=== PATIENT | male | born 1950 | race Caucasian/White ===

== ENCOUNTER → 2017-03-14 | Outpatient (CLI) | payer BC | LOC: FIMAGING 09:36 | PROVIDERS: ATTEND Specialist | DX: I87.8 Other specified disorders of veins (principal); Z87.442 Personal history of urinary calculi ==

== ENCOUNTER 2017-07-10 15:23 | Inpatient (IN) | payer BC ==
--- NOTE | 2017-07-10 15:40 | EDPHY ---
General - History Smoking Status: Never smoked Time Seen by Provider: 07/10/17 15:35 Narrative: CHIEF COMPLAINT: Elevated heart rate, dizzy HISTORY OF PRESENT ILLNESS: Patient sent to the emergency department as primary care physician due to elevated heart rate and abnormal EKG. He was at his primary care office today for routine visit. However, he complains that yesterday morning when he awoke he felt some shortness of breath and lightheadedness. His heart felt fossa but was not painful. Seem to be worse when he with ambulate. Minimal improvement rest. He did not wear his sleep apnea machine Saturday night. He has never had anything like this in the past. At his primary care office today, EKG was obtained due to elevated heart rate at check and vitals. EKG reportedly showed SVT. He was sent to our facility for higher level of care. He has had no syncope. He has no drug use or alcohol use. No other associated complaints or modifying factors. REVIEW OF SYSTEMS: Ten systems reviewed and are negative unless otherwise noted in the HPI PCP: Dr. Yasir Cheung SPECIALISTS: None currently PAST MEDICAL HISTORY: Low back pain, hypertension, dyslipidemia, central sleep apnea, opioid dependency currently weaning under supervision of physician PAST SURGICAL HISTORY: Lumbar surgery 2017 SOCIAL HISTORY: Nonsmoker. No drug or alcohol use. Retired post chief operations officer FAMILY HISTORY: Noncontributory EXAMINATION General Appearance: Alert, no distress. Conversing appropriately. Head: normocephalic, atraumatic Eyes: Pupils equal and round, no conjunctival pallor or injection ENT, Mouth: Mucous membranes moist Neck: Normal inspection, supple, non-tender Respiratory: Lungs are clear to auscultation. No wheezing, rhonchi or crackles Cardiovascular: Tachycardic rate. Irregular rhythm. No murmur. Pulses are symmetric in the DP and PT at 2+. Radial pulses symmetric 2+. Gastrointestinal: Abdomen is soft and nontender Back: non-tender, no bony abnormalities Neurological: GCS 15. Cranial nerves 2-12 grossly intact. A&O, nonfocal, normal gait. Strength is symmetric in all 4 limbs. Skin: Warm and dry, no rash no petechiae or purpura Extremities: Nontender, no pedal edema Psychiatric: Mood and affect normal DIFFERENTIAL DIAGNOSES: Including but not limited to SVT, atrial fibrillation, a flutter, atrial tachycardia, dysrhythmia MDM: 3:39 p.m. New onset of SVT versus AFib versus flutter. EKG pre-hospital suggest a flutter. He is awake and alert no acute distress. He is normotensive. He does have some shortness of breath and lightheadedness but no chest pain. EKG is being obtained at this time. IV has been placed. Laboratory studies have been ordered. I will discuss with Dr. Vieira for assistance in the management. 3:50 p.m. Patient has been evaluated by Dr. Vieira 4:10 p.m. Repeat EKG with different intervals suggest atrial flutter. We will start with a bolus of IV diltiazem in IV diltiazem drip. 4:15 p.m. I have re-evaluated the patient. He remains awake and alert and normotensive. We discussed treatment with diltiazem and diltiazem drip. Cardiology is been consult. Dr. Vieira has discussed the case with Dr. Guerrero. 4:30 p.m. Troponin is slightly elevated at 0.15. 4:45 p.m. Case discussed with hospitalist Dr. Ledezma. She will admit the patient to her service. He is admitted to a PCU bed with diltiazem drip. He is admitted in stable condition. Operations Agent will be evaluated the patient shortly in the emergency department SUPERVISION: Patient was evaluated and examined in conjunction with my secondary supervising physician as documented. We have both examined the patient. (Masood Smalls) 161: Evaluated this patient. He has central apnea and uses a BIPAP nightly. Monday night, 3 days ago, he had a fever of 101.3 degrees and chills. He is currently tapering off of his opiates from 750mg and is currently taking 60mg. He forgot to use his BIPAP machine 2 nights ago. Yesterday he had shortness of breath all day. Today he was having his yearly physical with Dr. Cheung who noticed the patient was tachycardic and had dyspnea. I have consulted with Dr. Guerrero, lamp decorator, regarding this patient. Diltazem 20mg IV bolus and drip administered. 1651: Consulted with Dr. Mckeon, hospitalist, he will assume care of this patient from Dr. Ledezma. (Oscar Vieira) - Diagnostics Imaging Results: Imaging Impressions Chest X-Ray 07/10/17 15:40 Impression: Nothing acute identified. No evidence for CHF. - Objective Vital Signs: Initial Vital Signs Temperature (C) 36.7 C 07/10/17 15:27 Heart Rate 147 H 07/10/17 15:27 Respiratory Rate 18 07/10/17 15:27 Blood Pressure 151/103 H 07/10/17 15:27 O2 Sat (%) 95 07/10/17 15:27 O2 Delivery Mode Room Air Allergies/Adverse Reactions: erythromycin base Allergy (Severe, Verified 06/11/14 11:18) Unknown Home Medications: Medication Instructions Recorded Amitriptyline HCl [Elavil 50 mg 25 mg PO HS 06/11/14 (RX)] Carisoprodol [Soma (RX)] 350 mg PO HS 06/11/14 Diazepam [Valium 5 MG (RX)] 5 mg PO HS PRN 06/11/14 Gabapentin [Gralise] 1,800 mg PO DAILY@1800 06/11/14 HYDROcodone/APAP 10/325 [Drifting 1 - 2 tab PO DAILY PRN 06/11/14 10/325] Herbals/Supplements -Info Only 1 ea PO DAILY 06/11/14 Morphine Sulfate [Avinza] 60 mg PO BID 06/11/14 Naproxen Sodium [Aleve] 220 - 440 mg PO DAILY PRN 06/11/14 Pravastatin Sodium [Pravachol] 40 mg PO HS 06/11/14 Sodium Cl Nasal [[place] (OTC)] 1 spray NS PRN PRN 06/11/14 clonAZEPAM [Klonopin] 0.5 mg PO HS PRN 06/11/14 Laboratory Results: Laboratory Results 07/10/17 15:45 07/10/17 15:45 07/10/17 07/10/17 07/10/17 15:45 15:45 15:45 WBC 5.65 10^3/uL 10^3/uL (3.80-9.50) RBC 4.67 10^6/uL 10^6/uL (4.40-6.38) Hgb 14.2 g/dL g/dL (13.7-17.5) Hct 42.6 % % (40.0-51.0) MCV 91.2 fL fL (81.5-99.8) MCH 30.4 pg pg (27.9-34.1) MCHC 33.3 g/dL g/dL (32.4-36.7) RDW 12.9 % % (11.5-15.2) Plt Count 265 10^3/uL 10^3/uL (150-400) MPV 9.8 fL fL (8.7-11.7) Neut % (Auto) 56.4 % % (39.3-74.2) Lymph % (Auto) 31.7 % % (15.0-45.0) [place] % (Auto) 10.6 % % (4.5-13.0) Eos % (Auto) 0.7 % % (0.6-7.6) Baso % (Auto) 0.4 % % (0.3-1.7) Nucleat RBC Rel Count 0.0 % % (0.0-0.2) Absolute Neuts (auto) 3.19 10^3/uL 10^3/uL (1.70-6.50) Absolute Lymphs (auto) 1.79 10^3/uL 10^3/uL (1.00-3.00) Absolute Monos (auto) 0.60 10^3/uL 10^3/uL (0.30-0.80) Absolute Eos (auto) 0.04 10^3/uL 10^3/uL (0.03-0.40) Absolute Basos (auto) 0.02 10^3/uL 10^3/uL (0.02-0.10) Absolute Nucleated RBC 0.00 10^3/uL 10^3/uL (0-0.01) Immature Gran % 0.2 % % (0.0-1.1) Immature Gran # 0.01 10^3/uL 10^3/uL (0.00-0.10) PT 13.5 SEC SEC (12.0-15.0) INR 1.01 (0.83-1.16) APTT 32.5 SEC SEC (23.0-38.0) Sodium 144 mEq/L mEq/L (135-145) Potassium 3.7 mEq/L mEq/L (3.5-5.2) Chloride 103 mEq/L mEq/L (97-110) Carbon Dioxide 28 mEq/l mEq/l (22-31) Anion Gap 13 mEq/L mEq/L (8-16) BUN 19 mg/dL mg/dL (7-23) Creatinine 1.0 mg/dL mg/dL (0.7-1.3) Estimated GFR > 60 Glucose 88 mg/dL mg/dL (70-100) Calcium 9.2 mg/dL mg/dL (8.5-10.4) Magnesium 1.9 mg/dL mg/dL (1.6-2.3) Troponin I 0.154 ng/mL H ng/mL (0.000-0.034) NT-Pro-B Natriuret Pep 4260 pg/mL H pg/mL (0-125) Medications Given: Discontinued Medications Diltiazem HCl (Cardizem 25 Mg/5 Ml Vial) 20 mg IVP EDNOW ONE Stop: 07/10/17 16:16 Last Admin: 07/10/17 16:41 Dose: 20 mg Diltiazem HCl 125 mg/ Dextrose 125 mls @ 0 mls/hr IV EDNOW ONE; As Directed PRN Reason: Protocol Stop: 07/10/17 16:16 Last Admin: 07/10/17 16:42 Dose: 125 mls Departure - Departure Disposition: [facility] Inpatient Acute Clinical Impression: Supraventricular tachycardia Condition: Good Referrals: Yasir Cheung MD [Primary Care Provider] - As per Instructions
--- NOTE | 2017-07-10 15:53 | CPEKG ---
Heart Rate: 146 RR Interval: 411 P-R Interval: 172 QRSD Interval: 96 QT Interval: 320 QTC Interval: 499 P [place]: -83 QRS [place]: -66 T Wave [place]: 56 EKG Severity - ABNORMAL ECG - EKG Impression: ECTOPIC ATRIAL TACHYCARDIA EKG Impression: PROBABLE INFERIOR INFARCT, OLD EKG Impression: ST DEPRESSION, PROBABLY RATE RELATED EKG Impression: BORDERLINE PROLONGED QT INTERVAL Electronically Signed By: Nicole Ceja 10-Jul-2017 17:19:24
[2017-07-10 16:02] LABS: PLATELET COUNT 265 10^3/uL (150-400)
[2017-07-10] MEDS ORDERED: DILTIAZEM 125 MG in D5W 125 ML IV ONE (16:15)
[2017-07-10] MEDS ORDERED: DILTIAZEM 25 MG/5 ML VIAL IVP ONE (16:15)
[2017-07-10 16:18] LABS: INR 1.01 (0.83-1.16); PROTIME(PATIENT) 13.5 SEC (12.0-15.0)
[2017-07-10] MEDS ORDERED: ACETAMINOPHEN 325 MG TAB PO PRN (17:37)
[2017-07-10] MEDS ORDERED: ONDANSETRON DISINTEGRATING 4 MG TAB PO PRN (17:37)
[2017-07-10] MEDS ORDERED: ONDANSETRON 4 MG/2 ML VIAL IVP PRN (17:37)
[2017-07-10] MEDS ORDERED: METOPROLOL TARTRATE 50 MG TAB PO ONE (17:41)
--- NOTE | 2017-07-10 17:48 | PDGENHP ---
History and Physical History and Physical: CC: The lightheadedness and exertional dyspnea, sent from Dr. Cheung office due to rapid heart rate HISTORY: This patient went into Dr. Yasir Cheung office for his routine previously scheduled general checkup today when it was noted that he had a very fast heart rate. This was regular but he had abnormal EKG with a flutter and he is sent to the ER for further evaluation and management. The patient mentions that he has had orthostatic lightheadedness and some exertional dyspnea that is somewhat mild for the last 2 days. This seems to have started he thinks after he decreased his narcotic dose 3 nights ago as part of his long ongoing tapering of prescribed narcotics. He had some mild withdrawal symptoms that night and did not sleep well. Also notably he did not use his sleep apnea at the breathing device that night. He has no palpitations chest pain orthopnea ankle swelling ankle or leg pain fevers thyroid symptoms. He has no previous history of heart disease or heart symptoms on review. Family history does include coronary disease in brother and father, and his father also had atrial fibrillation which was chronic. He does not drink any alcohol, was a heavy drinker quit 12 years ago. He does have central sleep apnea. He does not use any stimulants. He does not use any street drugs. He is not a smoker and never has been Also notable is that he had some tests prior to his visit with Dr. Cheung today, and the results on my review did include a low ferritin level. He mentions having had borderline low iron levels in the past. At 1 point in the remote past he was taking multivitamins with iron and had a higher iron level that was managed by stopping the iron supplement and he has been slightly low since then. He has never had a diagnostic assessment for why he is iron deficient. He has not been anemic. He has no weight loss digestive symptoms melanic stools or blood in the stool by history. No family history of GI malignancy ROS: A comprehensive 10 system review revealed no other significant findings PAST MEDICAL HISTORY: -Central sleep apnea using a CPAP like device -Chronic borderline iron deficiency -Chronic back pain for which she has used very high doses of prescribed narcotics, he had a surgery in July 2016 which has relieved his back pain and he has been slowly tapering down his narcotics since then. He has started off at 750 mg per day of combination of Oxy and hydrocodone and is down to 60 mg per day now. -There is a question of obstructive airways disease in the past and he apparently had some kind of pulmonary function testing at 1 point, and it is unclear whether there was actually an abnormality noted or not. He has never had asthma and has never used inhalers. -Bundle branch block FAMILY MEDICAL HISTORY: Coronary disease and myocardial infarctions in father and brother, AFib in father SOCIAL HISTORY: -Retired after working for the [employer] -Formally a heavy drinker quit 12 years ago -Never used any tobacco -Does not use street drugs -Lives in [place] MEDICATIONS: The patients list has been reconciled by our clinical pharmacist in the EMR. I have reviewed the list and ordered appropriate medicines. PHYSICAL EXAMINATION: Vital Signs: Heart rate 140-150 currently stable at 148 and regular, good blood pressure respirations and no fever Coffee Urn Attendant: Rapid atrial flutter 2-1 Examination: General: alert, oriented, good mentation, relaxed Skin: warm, dry, good color, no rash HEENT: normal Neck: no mass or jvd, no goiter Resps: relaxed Lungs: clear breath sounds with good air movement, no rales Heart: Very tachycardic, regular, no murmur Abdomen: soft, nondistended, nontender, +BS, no mass Upper Extremities: normal no clubbing of the fingers Lower Extremities: no edema, warm good pulses distally No Bleeding or bruising Neurologic: No tremor, normal speech/language, normal oil analyst, no focal weakness IV site: looks normal LABORATORY DATA: Date here today so far include a normal CBC, normal metabolic panel, normal coagulation studies Troponin mildly elevated 0.15, BNP is also elevated at 4000 Reviewing outpatient laboratory that was done recently I notice that he has a low ferritin at 12, with an iron level at 50 but no TIBC done. His most recent study before that showed a normal ferritin. RADIOLOGY STUDIES: Chest x-rays done today showing on my reading of the images no specific abnormalities including no signs of heart failure no masses no effusions or infiltrates 12 LEAD EKG: My reading of the tracing today is rapid atrial flutter 2-1 block heart rate 148 , nothing that looks ischemic ASSESSMENT: 1- new onset rapid atrial flutter in a patient with no prior history of heart disease * 2-1 block heart rate 148, poor response so far to diltiazem in the ER * No signs of heart failure or angina or other complications * Minimally elevated troponin is probably a demand ischemia from his tachycardia for the last 2 days * Suspect onset 2 days ago and triggered by some decrease in his narcotic dose * Not on aspirin or anticoagulants * Notably coronary risks does include family history 2- strongly suspect iron deficiency anemia, likely chronic with no history of previous GI workup * Will give iron here and will need outpatient GI workup; * follow closely here as he will be started on anticoagulant * Will check Hemoccult here 3- chronic sleep apnea, central * Does not have his CPAP device with them and does not think it can be brought in tonight so ask Respiratory therapy to assist and keep him on CPAP here 4- chronic back pain with chronic prescribed high-dose daily narcotic use * Has done a great job of tapering down from 750 mg daily to 60 mg daily of oral prescribed narcotic, continue his usual dose here PLANS: -inpatient admission to PCU -Dr. Rebekah Guerrero from Cardiology was consulted by the emergency room physician -rate control, I will start with some beta-omar at this time as he has not responded well yet to the diltiazem in the ER -no acute indication for cardioversion, and in fact with not entirely certain time of onset would not be safe cardiovert at least without doing ERVIN 1st -begin anticoagulation tonight with Lovenox, will need to discharge on oral -echocardiogram -check TSH -doubt coronary disease but will repeat troponins to see they are not trending up, and will likely need risk stratification before discharge or shortly after -check complete iron studies to confirm diagnosis of spit suspected iron deficiency; * Check stool hemoccults, give IV iron here and oral iron going home * Need outpatient GI workup -continue CPAP here if able, have requested that he look to trying get someone to bring his CPAP device here tomorrow I have reviewed the patient's case in detail with Dr. Alba Ledezma and Dr. Oscar Vieira I have reviewed the patient's past medical records as part of this assessment, including outpatient laboratory data, CT scans, and other outpatient records
[2017-07-10] MEDS ORDERED: NON-FORMULARY NEW DRUG (Clonazepam [Klonopin] 0.5 MG) PO PRN (17:57)
[2017-07-10] MEDS ORDERED: SODIUM CL NASAL 45 ML BTL NS PRN (17:57)
[2017-07-10] MEDS ORDERED: DIAZEPAM 5 MG TAB PO PRN (17:57)
[2017-07-10] MEDS ORDERED: SODIUM FERRIC GLUCONAT/SUCROSE 125 MG in NS 100 ML IV ONE (18:00)
[2017-07-10] MEDS ORDERED: DIAZEPAM 10 MG TAB PO PRN (18:43)
[2017-07-10] MEDS ORDERED: clonazePAM 0.5 MG TAB PO PRN (18:44)
[2017-07-10] MEDS ORDERED: DILTIAZEM 125 MG in D5W 125 ML IV SCH (20:00)
[2017-07-10] MEDS ORDERED: AMITRIPTYLINE HCL 50 MG TAB PO SCH (21:00)
[2017-07-10] MEDS: HYDROCODONE/APAP 10/325 TAB PO PRN (21:33)
[2017-07-10] MEDS: PRAVASTATIN SODIUM 40 MG TAB PO SCH (21:34)
[2017-07-10] MEDS: AMITRIPTYLINE HCL 25 MG TAB PO SCH (21:37)
[2017-07-10] MEDS: CARISOPRODOL 350 MG TAB PO SCH (21:37)
[2017-07-10] MEDS ORDERED: CEPACOL LOZENGE PO PRN (23:14)
[2017-07-10] MEDS ORDERED: ENOXAPARIN 80 MG/0.8 ML SYR SC ONE (23:14)
[2017-07-11] MEDS: HYDROCODONE/APAP 10/325 TAB PO PRN ×5 (01:16→21:25)
[2017-07-11 04:47] LABS: PLATELET COUNT 226 10^3/uL (150-400)
--- NOTE | 2017-07-11 08:41 | CPEKG ---
Heart Rate: 68 RR Interval: 882 P-R Interval: 176 QRSD Interval: 114 QT Interval: 448 QTC Interval: 477 P Fosters: 52 QRS [place]ost[place]: -21 T Wave [place]: 35 EKG Severity - ABNORMAL ECG - EKG Impression: SINUS RHYTHM EKG Impression: NONSPECIFIC INTRAVENTRICULAR CONDUCTION DELAY EKG Impression: LOW VOLTAGE IN FRONTAL LEADS Electronically Signed By: Keven Woodall 11-Jul-2017 19:14:43
--- NOTE | 2017-07-11 08:58 | ECHO ---
[email or web address] [address] [address] Main: [phone] Fax: Transthoracic Echocardiogram Name: HIMA NOYOLA MR#: [id number] Study Date: 07/11/2017 Study Time: 07:59 AM Date of : 1950 Age: 66 year(s) Height: 177.8 cm (70 in.) Weight: 79.38 kg (175 lb.) BSA: 1.97 m2 Gender: Male Examination: Echo Indication: New onset Atrial Flutter, Now Sinus rhythm with ectopy and Chest Pain Image Quality: Contrast: Requested by: Juan Mckeon BP: 97 mmHg/74 mmHg Heart Rate: Rhythm: Normal sinus rhythm with ectopy Indication: New onset Atrial Flutter, Now Sinus rhythm with ectopy and Chest Pain Procedure Staff Merchandise Pickup/Receiving Associate: [facility] Reading Physician: Rebekah Guerrero Requesting Provider: Alba Ledezma Conclusions: Normal size left ventricle. Normal global systolic LV function. EF is 73 %. No regional wall motion abnormality. Grade 1 diastolic dysfunction (abnormal relaxation). Normal size right ventricle. Normal RV function. Moderate aortic valve regurgitation is present. The aortic valve is probably trileafet; a bicuspid aortic valve cannot be completely ruled out. Mild tricuspid regurgitation is present. The pulmonary artery pressure is moderately increased. No prior echo Measurements: Chambers Valvular Assessment AV/MV Valvular Assessment TV/PV Normal Normal Normal Name Value Range Name Value Range Name Value Range Ao Kinsey (MM): 4.3 cm (2.2 cm-3.7 AV meanP mmHg ( - ) TR Vmax: 3.39 mm/s ( - ) cm) KUMAR (VTI): 2.0 cm ( - ) TR PGmax: 46 mmHg ( - ) IVSd (2D): 1.0 cm (0.6 cm-1.1 MV E Vmax: 0.46 m/s ( - ) syst. PAP: 51 mmHg ( - ) cm) MV A Vmax: 0.59 m/s ( - ) PV Vmax: 0.62 m/s (0.6 m/s-0.9 LVDd (2D): 5.3 cm (4.2 cm-5.9 MV E/A: 0.78 ( - ) m/s) cm) MV meanP mmHg ( - ) PV PGmax: 2 mmHg ( - ) LVDs (2D): 3.1 cm (2.1 cm-4 cm) MVA (Vmax): 2.6 m/s ( - ) LVPWd (2D): 1.2 cm (0.6 cm-1 cm) LVOTd 2.1 cm 2.1 cm mm LVEF (2D): 73 (>=54 %) Patient: HIMA NOYOLA Study Date: 07/11/2017 Page 1 of 2 07:59 AM Continued Measurements: Chambers Valvular Assessment AV/MV Valvular Assessment TV/PV Name Value Name Value Name Value LADs Lon.1 cm MV Annulus: 3.1 cm CVP (est.): 5 mmHg LA Area: 17.0 cm2 MV E' Septal: 0.06 m/s LA Volume: 44 ml MV E/E' Septal: 7.20 LA Volume Index: 22.3 ml/m2 MV E/E' Lateral: 6.00 MV VTI: 20.20 cm AR Vmax: 3.56 cm/s AR ERO: 0.140 cm2 AR PISA radius: 0.5 cm AR Reg. Volume: 25.0 ml AR Reg. Fraction: 47 % AR VTI: 178.0 cm Findings: Left Ventricle: Normal size left ventricle. Normal global systolic LV function. EF is 73 %. No regional wall motion abnormality. Grade 1 diastolic dysfunction (abnormal relaxation). Right Ventricle: Normal size right ventricle. Normal RV function. Left Atrium: The left atrium is normal in size. Right Atrium: The right atrium is normal in size. Mitral Valve: The mitral valve is normal in appearance and function. There is no mitral valve regurgitation. No mitral stenosis is present. Aortic Valve: Moderate aortic valve regurgitation is present. No aortic valve stenosis is present. The aortic valve is probably trileafet; a bicuspid aortic valve cannot be completely ruled out. Tricuspid Valve: Mild tricuspid regurgitation is present. The pulmonary artery pressure is moderately increased. Pulmonic Valve: The pulmonic valve is normal in appearance and function. Aorta: The aorta is normal. Pericardium: No pericardial effusion. (No Signature Object) Patient: HIMA NOYOLA Study Date: 07/11/2017 Page 2 of 2 07:59 AM [id number]
[2017-07-11] MEDS: POLYETHYLENE GLYCOL 3350 17 GM PKT PO SCH (09:31)
--- NOTE | 2017-07-11 10:28 | PDMN ---
Medical Necessity Medical necessity: M-510 Supraventricular Arrhythmias (likely demand ischemia/ elevated troponins with 2:1 atrial flutter, rate 148; anticipated LOS > 2 midnights for ongoing diltiazem IV gtt, starting PO betablocker, anticoagulation , further monitoring.)
[2017-07-11] MEDS ORDERED: SODIUM FERRIC GLUCONAT/SUCROSE 125 MG in NS 100 ML IV ONE (10:51)
[2017-07-11] MEDS: APIXABAN 5 MG TAB PO SCH ×2 (10:56→21:18)
[2017-07-11] MEDS: METOPROLOL TARTRATE 25 MG TAB PO SCH ×2 (10:56→21:16)
[2017-07-11] MEDS: PANTOPRAZOLE SODIUM 40 MG TAB PO SCH (10:57)
--- NOTE | 2017-07-11 12:20 | GCON ---
[f rep st] CONSULTATION CARDIOLOGY CONSULT DATE OF CONSULTATION: 07/11/2017 REFERRING PHYSICIAN: Juan Mckeon MD CHIEF COMPLAINT: Atrial flutter. HISTORY OF PRESENT ILLNESS: We were asked by Dr. Mckeon to visit with this patient. The patient is a 66-year-old male with borderline hypertension, dyslipidemia, central sleep apnea, and chronic anemi a. He had a rough weekend. On Monday night, he went through a round of opioid withdrawal, which has bee n happening periodically as he weans his chronic opiates under the direction of his pain medicine doc leyla. On Monday night, he put his ASV machine on but did not turn it on and slept very poorly. All day Monday, he was short of breath and lightheaded. He had a little bit of chest pressure. He went to Dr. Cheung' office yesterday, July 10, for his annual physical exam and was found to be in a rapid SVT, which appears most likely to be atrial flutter. He was, therefore, sent to the emerg ency department and admitted for observation. He initially was started on diltiazem drip and then given 50 mg of metoprolol tartrate p.o. He conve rted to normal sinus rhythm yesterday evening. He has been given full-dose Lovenox as well. This morning, he reports some persistent chest pressure that is overall improving, especially when he sits up. He is no longer lightheaded. He is not dyspneic. He has not had problems with lower extr emity edema. He denies a known history of arrhythmia or coronary disease. ALLERGIES: Erythromycin. PAST MEDICAL HISTORY: 1. New diagnosis of atrial flutter. 2. Chronic iron deficiency anemia. 3. Borderline hypertension. 4. Dyslipidemia. 5. Central sleep apnea treated with ASV. 6. History of chronic low back pain, currently weaning narcotics. SURGICAL HISTORY: Spine surgery x2. OUTPATIENT MEDICATIONS: Pravastatin 40 mg daily, Elavil, Soma, Klonopin, Valium, Beatrice, Aleve, Taylor AX, and [place] nasal spray. SOCIAL HISTORY: The patient is a retired spray worker. He is not smoke cigarettes or drink signifi cant amounts of alcohol. Former heavy alcohol use, none for several years. FAMILY HISTORY: Father had atrial fibrillation. His father and brother had coronary disease with my ocardial infarction. PHYSICAL EXAMINATION: VITAL SIGNS: Blood pressure 97/74, heart rate 71, oxygen saturation 96% on ro om air. He is afebrile. GENERAL: Well-appearing, older male in no acute distress. HEENT: Sclerae clear. No jaundice. Mucous membranes moist. CARDIOVASCULAR: JVP less than 10. Carotids equal an d 2+ without bruit. Regular rate and rhythm without murmur or gallop. LUNGS: Clear to auscultation bilaterally without wheeze, rhonchi, or rales. ABDOMEN: Soft, nontender, nondistended without brui ts, masses, hepatosplenomegaly. EXTREMITIES: Warm and well perfused without cyanosis, clubbing, or edema. NEUROLOGIC: Alert and oriented x3 without gross focal neurological deficits. Appropriate mo od and affect. DATA: CBC shows a white count of 5.1, hematocrit 34.8, and platelets are 226. INR is normal. Basic metabolic panel is essentially normal except for slightly low calcium of 8.4. Troponin peaked at 0. 154. His BNP is 4260. TSH is low normal at 0.887. Iron 46, iron saturation 14, TIBC is normal. St ool occult blood screen is negative. LABORATORY AND DIAGNOSTIC STUDIES: EKG reviewed by me upon admission shows atrial flutter with 2:1 c onduction and no ischemic changes. EKG this morning: Sinus rhythm, borderline prolonged QT interval . No ischemic changes. Echocardiogram reviewed by me: Normal LV size and systolic function, moderate aortic regurgitation, cannot completely rule out a bicuspid aortic valve, mild tricuspid regurgitation with estimated pulmo nary artery pressure of 50, moderate pulmonary hypertension. Chest x-ray reviewed by me: No acute cardiopulmonary process. ASSESSMENT AND PLAN: 66-year-old male with new onset atrial flutter. He has converted with diltiaze m IV and oral metoprolol. He is currently in sinus rhythm. He did have a minimal troponin elevation as well as evidence of some diastolic heart failure based on BNP. He is not clinically volume overl oaded. 1. Atrial flutter: Initiate low-dose beta omar. Initiate Eliquis for CHADS2-VASc score of at le ast 1. I would recommend Eliquis for a minimum of 1 month, with careful attention to his hematocrit with history of ill-defined anemia. He reports that he has never had a bleeding problem. TSH is nor mal. It is likely that his atrial arrhythmia was triggered by a night without his Adaptive Servo Seun tilation as well as opiate withdrawal. If he has recurrent atrial flutter, consider electrophysiolog y consult. 2. Minimally elevated troponin: This is likely demand subendocardial ischemia in the setting of rap id ventricular rate. He is having some intermittent chest pressure earlier today. Would favor inpat ient risk stratification with Lexiscan nuclear stress test. This has been ordered. Continue beta-bl ocker. Continue statin. 3. Valvular heart disease: He has moderate aortic regurgitation on echocardiogram. He will require annual echoes to follow this. At some point, could consider transesophageal echocardiogram to ensur e that the valve is not bicuspid. 4. Dyslipidemia: On pravastatin. 5. Chronic pain and chronic opioid dependence: Per outpatient management. 6. Anemia: It is likely that he has previously had an outpatient workup with Dr. Cheung. We marlo l start him on a proton pump inhibitor here. Careful attention to his bleeding risk in the setting o f initiation of systemic anticoagulation. Thank you for allowing us to participate in this patient's care. Will follow with you. /[id number]/MODL
--- NOTE | 2017-07-11 13:34 | ASMTCMCOM ---
CM Note CM Note Notes: 07/11/2017 Case Management Note Met w/pt during rounds today. Pt admitted for new onset atrial flutter with h/o SOB and dizziness. There are no PT or OT evals ordered at this time. Pt has family support. There are no further case management d/c needs identified at this time. Case Management d/c poc: anticipating independent with follow up as directed. Case Management available if needs change. Date Signed: 07/11/2017 01:34 PM Electronically Signed By:Sabrina Murillo RN
--- NOTE | 2017-07-11 17:46 | HOSPPROG ---
Hospitalist Progress Note Assessment/Plan: Assessment: 66-year-old male presenting with acute atrial flutter, new diagnosis, acute chest pain and abnormal troponin level Plan: 1. Atrial flutter. Acute, new diagnosis, unclear whether myocardial ischemia has been the cause or effect of this issue -initial EKG personally interpreted, atrial flutter, then received oral metoprolol and IV diltiazem drip, chemically cardioverted to normal sinus mechanism with Q-waves inferiorly, intraventricular conduction delay -discussed with Dr. Rebekah Guerrero, the patient will be continued on oral metoprolol and has been initiated on systemic anticoagulation and will continue for 1 month, given chemical cardioversion -will monitor him closely for bleeding, given the patient's iron deficient anemia of unclear etiology -patient counseled extensively regarding the plan above, and patient agrees that this workup and plan seems appropriate 2. Abnormal troponin level. Patient with acute chest pain and troponin 0.1, in the setting of new atrial flutter, unclear whether the patient has had obstructive coronary disease precipitating this event -chest x-ray demonstrates no evidence of CHF, but BNP is significantly elevated at 4200 -discussed with Dr. Rebekah Guerrero, we agreed that urgent cardiac risk stratification is indicated, will get nuclear medicine stress test tomorrow a.m. , patient unable to get today given caffeine consumption 3. Iron deficient anemia. Iron and saturation levels low, hemoglobin 10.4, patient with a history of colitis but no obvious source of bleeding -receiving 2nd dose of IV iron today, will continue on oral iron hereafter -repeat hemoglobin in a.m. -will follow up with Dr. Brannon Bedoya, patient has had a colonoscopy by him approximately 3 years ago, would recommend upper endoscopy and lower endoscopy Diet. Regular, NPO in a.m. Prophylaxis. High risk patient, currently systemically anticoagulated Code. Full Disposition. Anticipated discharge is 07/12, pending further workup as outlined above. Subjective: No hematochezia or melena, patient with some anterior chest discomfort Objective: Vital Signs Temp Pulse Resp BP Pulse Ox 36.7 C 78 18 107/72 93 07/11/17 17:04 07/11/17 17:04 07/11/17 17:04 07/11/17 17:04 07/11/17 17:04 Laboratory Results 07/11/17 04:00 07/11/17 04:00 07/10/17 07/11/17 07/12/17 05:59 05:59 05:59 Intake Total 1635 Output Total 1850 Balance -215 PT 13.5 SEC (12.0-15.0) 07/10/17 15:45 INR 1.01 (0.83-1.16) 07/10/17 15:45 - Time Spent With Patient Time Spent with Patient: greater than 35 minutes Time Spent with Patient: Greater than 35 minutes spent on this patients care, greater than 50% of time spent counseling, educating, and coordinating care regarding the above mentioned plan. - Pending Discharge Pending Discharge Within 24 Hours: Yes Pending Discharge Date: 07/12/17 Pending Discharge Time: 11:00 - Physical Exam Constitutional: no apparent distress, not in pain, No uncomfortable Cardiovascular: No systolic murmur, No irregularly irregular, No tachycardia, No edema Respiratory: no respiratory distress, no rales or rhonchi, clear to auscultation Gastrointestinal: normoactive bowel sounds, soft, non-tender abdomen, no palpable masses, No distension Neurologic: AAOx3 Psychiatric: interacting appropriately, not anxious, not encephalopathic, thought process linear ICD10 Worksheet Patient Problems: Problems Problem Status Onset Supraventricular tachycardia Acute
[2017-07-11] MEDS: PRAVASTATIN SODIUM 40 MG TAB PO SCH (21:15)
[2017-07-11] MEDS: CARISOPRODOL 350 MG TAB PO SCH (21:16)
[2017-07-11] MEDS: AMITRIPTYLINE HCL 25 MG TAB PO SCH (21:17)
[2017-07-12] MEDS ORDERED: DIAZEPAM 5 MG TAB PO PRN (00:30)
[2017-07-12] MEDS: HYDROCODONE/APAP 10/325 TAB PO PRN ×4 (02:03→15:46)
[2017-07-12 04:16] LABS: PLATELET COUNT 231 10^3/uL (150-400)
[2017-07-12] MEDS ORDERED: REGADENOSON 0.4 MG/5 ML SYR IVP ONE (09:27)
[2017-07-12] MEDS: APIXABAN 5 MG TAB PO SCH (11:27)
[2017-07-12] MEDS: PANTOPRAZOLE SODIUM 40 MG TAB PO SCH (11:27)
[2017-07-12] MEDS: METOPROLOL TARTRATE 25 MG TAB PO SCH (11:27)
[2017-07-12 11:30] VITALS: BP 126/80; PULSE 82; RESP 12; TEMP 98; O2SAT 97
[2017-07-12] MEDS: POLYETHYLENE GLYCOL 3350 17 GM PKT PO SCH (11:31)
--- NOTE | 2017-07-12 12:22 | PDCARST ---
CAR Stress Test Results Type of Stress Test: Lexiscan stress test Indication: elevated trop Description of Procedure: After informed consent was obtained, pt was established to ECG, blood pressure, HR and oximetry monitoring. STRESS EKG AND HEMODYNAMIC DATA. Resting heart rate: 91 BPM. Resting ECG: SR. Resting blood pressure: 124/90 mmHg. O2 saturation at rest: 91%. Peak heart rate: 102 BPM. Peak blood pressure: 118/90 mmHg. Arrhythmias: none. Symptoms : The patient experienced no typical symptoms of angina during stress or recovery. Stress/Infusion ECG: No change in rhythm with no significant ST/T wave changes. Stress/infusion O2 saturation: 92% Impression: Uneventful Lexiscan infusion. Conclusion: Await nuclear images.
--- NOTE | 2017-07-12 13:08 | PDCARPN ---
Cardiology Progress Note Assessment/Plan: Assessment/plan: 66-year-old male with chronic iron deficiency anemia, dyslipidemia admitted from his primary care's office with new onset atrial flutter that was fairly symptomatic. He converted after IV diltiazem and a single dose of oral metoprolol. 1. Atrial flutter: Currently sinus rhythm. He is tolerating low-dose beta- omar. We did start him on Eliquis, but will have to watch his anemia closely. He had a negative occult blood stool here in the hospital. Likely Eliquis can be short term, but I do recommend this for at least 1 month. 2. Minimally positive troponin: This is likely demand ischemia in the setting of tachyarrhythmia. He had a normal myocardial perfusion study here in the hospital. Continue beta-omar. 3. Anemia: I do not know what cardio outpatient evaluation he has had. His hematocrit is stable. No clinical bleeding. 4. Valvular heart disease: Moderate aortic regurgitation. His valve is possibly bicuspid. Would recommend echocardiogram in 1 year and consideration of ERVIN. He is not in heart failure or having any symptoms attributable to valvular disease. 5. Dyslipidemia: On pravastatin. He is stable to discharge from a cardiac standpoint. Please have him follow-up with me in clinic in 4-6 weeks. 07/12/17 13:09 Subjective: He feels better today. No palpitations, chest pain or dyspnea. Objective: Vital Signs (8 Hrs) Temp Pulse Resp BP Pulse Ox 07/12/17 11:30 36.7 C 82 12 126/80 H 97 07/12/17 07:36 36.7 C 83 20 118/74 96 Intake/Output (24 Hrs) 07/11/17 07/12/17 07/13/17 05:59 05:59 05:59 Intake Total 1635 750 200 Output Total 1850 1050 Balance -215 -300 200 Intake: Oral (ml) 400 750 200 IV Infused (ml) 1235 Diltiazem 125 mg In D5w 110 125 ml @ As Directed IV EDNOW ONE Rx#:[id number] Sodium Ferric Gluconat/ 125 Sucrose 125 mg In Ns 100 ml @ 110 mls/hr IV ONCE ONE Rx#:[id number] Output: Urine (ml) 1850 1050 Urinal 1850 1050 Other: Weight 80.739 kg Intake Quantity Yes Yes Yes Sufficient Number of Voids Urinal 2 Number of Stools Toilet 1 Urinal 1 NAD JVP <10 Regular rate and rhythm without murmur or gallop Occasional rhonchi at both bases no wheezes or rales No lower extremity edema Result Diagrams: 07/12/17 03:30 07/12/17 03:30 Cardiac Labs: Cardiac Lab Results (72 Hrs) 07/11/17 07/10/17 04:00 21:10 Troponin I 0.102 H 0.131 H Telemetry: NSR ICD10 Worksheet Patient Problems: Problems Problem Status Onset Supraventricular tachycardia Acute
--- NOTE | 2017-07-12 19:22 | PDDCSUM ---
Discharge Summary Discharge Summary: DISCHARGE SUMMARY FOLLOW-UP ITEMS: Follow up with Dr. Rebekah Guerrero in 3 weeks DATE OF ADMISSION: 07/10/2017 DATE OF DISCHARGE: 07/12/2017 DISCHARGE DIAGNOSES: 1. Acute atrial flutter 2. Abnormal troponin level the transient myocardial ischemia 3. Chronic Iron deficient anemia 4. Chronic pain with continuous opiate and benzodiazepine dependency CONSULTATIONS: Cardiology PROCEDURES / IMAGING: Nuclear medicine stress test demonstrating no inducible ischemia CHIEF COMPLAINT: Acute shortness of breath, generalized weakness SUBJECTIVE: Patient is feeling well at time of discharge PHYSICAL EXAM ON DISCHARGE: Systolic blood pressure 120-130, heart rate 80-90, afebrile overnight, satting well on room air, alert awake oriented x3, lungs are clear to auscultation bilaterally, heart rhythm is regular LABS ON DISCHARGE: Potassium 3.6, creatinine 0.7, liver panel unremarkable, hemoglobin 11.9, white blood cell count 8100 HOSPITAL COURSE BY PROBLEM: The patient presented with acute atrial flutter which is a new diagnosis for the patient is most likely symptomatic resulting in shortness of breath and generalized weakness. Exact precipitant is unclear, but it may be secondary to his recent opiate wean, the patient was ruled out for obstructive coronary disease with a negative nuclear medicine stress test. He was chemically cardioverted with a combination of oral metoprolol and IV diltiazem drip, and he has been maintained in normal sinus mechanism with low-dose metoprolol tartrate. He was seen in consultation by Cardiology and they recommended least 1 month of systemic anticoagulation, with close outpatient follow-up. We initiated the anticoagulation during this hospitalization given his history of chronic iron deficient anemia and are concerned that he may developed a GI bleed. The Eliquis was initiated, patient did not demonstrate evidence of GI bleeding, and he was safely discharged with a hemoglobin of 11.9, after receiving 2 doses of IV iron and initiated on oral iron therapy with a stool softener. He will follow up with Dr. Mana ty would recommend outpatient colonoscopy given that is been 3 years since his most recent upper endoscopy and lower endoscopy. The patient's hospitalization was extended secondary to transient myocardial ischemia abnormal troponin level, requiring further diagnostic testing including nuclear medicine stress test, which was conducted on 07/12. The test did not demonstrate any inducible ischemia and no further cardiac risk stratification is indicated at this juncture. DISCHARGE MEDICATIONS: Please see official discharge medication reconciliation sheet in chart , Eliquis 5 mg twice daily, metoprolol tartrate 12.5 mg twice daily, ferrous sulfate 325 twice daily, Senokot S twice daily, pantoprazole 40 mg daily DISCHARGE INSTRUCTIONS: Please follow up Dr. Rebekah Guerrero in 3-4 weeks, please continue opiate wean under the direction of your pain crop pest control specialist. TIME SPENT: Greater than 30 minutes were spent on direct patient care, as well as discharge planning and preparation.
== END 2017-07-12 16:16 | disposition home or self-care (01) | DRG 309 ==
LOC: F2W 18:04
PROVIDERS: ADMIT Internal Medicine; ATTEND Internal Medicine
DX: I48.92 Unspecified atrial flutter (principal); F13.20 Sedative, hypnotic or anxiolytic dependence, uncomplicated; F11.20 Opioid dependence, uncomplicated; I25.9 Chronic ischemic heart disease, unspecified; D50.0 Iron deficiency anemia secondary to blood loss (chronic); G89.29 Other chronic pain; I10 Essential (primary) hypertension; E78.5 Hyperlipidemia, unspecified; G47.37 Central sleep apnea in conditions classified elsewhere
CPT/HCPCS: 96374; A9500; J1650; J2785; J2916

== ENCOUNTER → 2017-09-04 | Outpatient (CLI) | payer BC | LOC: BMCIMAGING 13:53 | PROVIDERS: ATTEND Orthopaedic Surgery | DX: M17.12 Unilateral primary osteoarthritis, left knee (principal); M25.552 Pain in left hip ==

== ENCOUNTER → 2017-09-21 | Outpatient (CLI) | payer OTHER, BC | LOC: FIMAGING 14:21 | PROVIDERS: ATTEND Orthopaedic Surgery | DX: Z01.818 Encounter for other preprocedural examination (principal); M16.12 Unilateral primary osteoarthritis, left hip ==

== ENCOUNTER 2017-10-23 06:00 | Inpatient (IN) | payer OTHER, BC ==
[~2017-10-23 06:00] MED LIST: ROPIVACAINE 0.2% 80 MG, EPINEPHrine 0.2 MG, KETOROLAC TROMETHAMINE 30 MG, morphINE 10 M... IU ONE; TRANEXAMIC ACID 1,000 MG in NS 100 ML IV ONE; ceFAZolin 2 GM/DEXTROSE 100 ML IV ONE
--- NOTE | 2017-10-23 06:24 | PDIAF ---
- Diagnosis Diagnosis: left hip djd Code Status: Full Code - Medication Management Discharge Medications: Medications to Continue on Transfer Amitriptyline HCl [Elavil 50 mg (*)] 25 mg PO HS 06/11/14 [Last Taken 07/09/17] Carisoprodol [Soma (*)] 350 mg PO HS 06/11/14 [Last Taken 07/09/17] Diazepam [Valium 5 MG (*)] 10 mg PO HS PRN 06/11/14 [Last Taken 07/09/17] Herbals/Supplements -Info Only 1 ea PO DAILY 06/11/14 [Last Taken 06/07/14] Pravastatin Sodium [Pravachol] 40 mg PO HS 06/11/14 [Last Taken 07/09/17] Sodium Cl Nasal [[place] (*)] 1 spray NS PRN PRN 06/11/14 [Last Taken 06:00] clonAZEPAM [KLONOPIN] 0.5 mg PO HS PRN 06/11/14 [Last Taken 07/09/17] Polyethylene Glycol 3350 [Miralax 17 gm (*)] 17 gm PO DAILY 07/10/17 [Last Taken 07/10/17] Ferrous Sulfate 325 mg PO BID #60 tablet 07/12/17 [Last Taken Unknown] Metoprolol Tartrate [Lopressor 25 mg (*)] 12.5 mg PO BID #60 tab 07/12/17 [Last Taken Unknown] Naproxen Sodium [Aleve 220 MG (*)] 440 mg PO DAILY 09/28/17 [Last Taken Unknown] oxyCODONE IR [Oxycodone Ir (*)] 20 mg PO Q4H 09/28/17 [Last Taken Unknown] Discharge Medications: Refer to the Discharge Home Medication list for PRN reason. - Orders Services needed: Physical Therapy Diet Recommendation: no restrictions on diet Diet Texture: Regular Texture Diet Activity/Weight Bearing Restrictions: wbat. rom as storm, anterior hip precautions. ice prn. may shower without bandage. no soaking. daily dressing change if dressing becomes saturated. seek attn for increasing pain, cp, sob, drainage, redness or other focal complaint. f/u at two weeks Additional Instructions: TOTAL JOINT ARTHROPLASTY DISCHARGE INSTRUCTIONS 1. Your surgeon follows the [facility] protocol for reducing your risk of DVT (blood clots) following surgery. Medication will be ordered to prevent blood clots. A sudden increase in calf pain and/or swelling could indicate a blood clot in your leg. If this occurs, please call your surgeon or his/her assistant import manager. An ultrasound of the leg may be necessary to diagnose a blood clot. If you have conditions that make you a higher risk for blood clots, your surgeon may use more aggressive ways to prevent them. Notify your surgeon if you think you are a high risk for blood clots. 2. Wear your white surgical stockings (JAIDEN hose) for 2 weeks. This decreases your swelling and may help prevent blood clots. It is ok to remove JAIDEN hose at night time to give your legs a break. 3. Swelling and bruising in the surgical leg is common. If you feel that it is excessive, please notify your surgeon. 4. Elevate your surgical leg with the ankle above the hip several times every day. Please keep the leg straight when you elevate by putting pillows under your foot. Do not put pillows under your knee. This will make being able to fully straighten more difficult. This is uncomfortable, but try to do it as much as possible. 5. For total knee replacements use compressive wrap on your knee for 3-5 days after surgery, then you can discontinue it. 6. Use a walker or crutches for 1-2 weeks. Progress your weight-bearing as tolerated. You may start to use a cane when you feel stable and safe. 7. You will receive physical therapy instructions in the hospital. Continue those exercises at home. There are additional exercises in the total joint booklet you were given before surgery. Outpatient physical therapy will begin 7- 10 days after surgery. Please schedule this in advance. 8. Use ice on your knee at least 3-5 times every day for 30 minutes. This helps reduce pain and swelling. Also use it at night before falling asleep. 9. Leave your surgical dressing in place for 2 weeks. Your dressing is water resistant, but not waterproof. Cover it with Saran Wrap or [id number] before showering. You may shower as soon as you feel safe entering a shower. If you notice bleeding from your incision 2 or 3 days after surgery, please notify your surgeon. 10. Due to narcotics, decreased activity and altered diet, most patients experience constipation after surgery. Use [id number] stool softeners while you are on narcotics. 11. You may drive a car when you are comfortable bearing weight, have good muscular control of your leg and are off narcotics. This usually occurs 2-4 weeks after surgery, depending on which leg was operated on. 12. If there are questions not addressed here, please refer the [facility] book given for more information. If you still have questions, please contact your surgeon s office. 13. If you have a life-threatening emergency, please call 911 and go to the emergency room immediately. For non-life threatening emergencies, please call your physicians office for advice before going to the emergency room. - Follow Up Care Current Providers and Referrals: Rubén Perrin MD [Medical Doctor] - Yasir Cheung MD [Primary Care Provider] -
--- NOTE | 2017-10-23 06:24 | PDHPUP ---
History & Physical Update H&P update statement: This history and physical update is based on an assessment of the patient which was completed after admission or registration (within 24 hours), but prior to the surgery/procedure. H&P update: no change in patient's condition since H&P completed
--- NOTE | 2017-10-23 07:14 | PDANEPAE ---
ANE History of Present Illness 67 year old male with PMHx of chronic neck and low back pain (on home oral opiates), history of A.Fib/flutter (discontinued Eliquis/Apixaban 2 weeks ago per interview) presents for total hip arthroplasty. ANE Past Medical History - Cardiovascular History Hx Hypertension: No Hx Arrhythmias: Yes Hx Chest Pain: No Hx Coronary Artery / Peripheral Vascular Disease: No Hx CHF / Valvular Disease: No Hx Palpitations: No Cardiovascular History Comment: Bundle branch block-benign per pt. History of A. Fib/Flutter - Pulmonary History Hx COPD: No Hx Asthma/Reactive Airway Disease: No Hx Recent Upper Respiratory Infection: Yes Hx Oxygen in Use at Home: No Hx Sleep Apnea: Yes Sleep Apnea Screening Result - Last Documented: Positive Pulmonary History Comment: 06/04-pnuemonia, inpt at [place]. 03/04-DX central sleep apnea. On ASV machine. 04/04-URI, on ABX & resolved. - Neurologic History Hx Cerebrovascular Accident: No Hx Seizures: No Hx Dementia: No - Endocrine History Hx Diabetes: No Obesity: no - Renal History Hx Renal Disorders: No Renal History Comment: kidney stone - Liver History Hx Hepatic Disorders: No - Neurological & Psychiatric Hx Hx Neurological and Psychiatric Disorders: Yes Neurological / Psychiatric History Comment: Anxiety - Cancer History Hx Cancer: No - Congenital Disorder History Hx Congenital Disorders: Yes Congenital History Comment: Inguinal hernia-repaired at . - GI History Hx Gastrointestinal Disorders: Yes Gastrointestinal History Comment: Ulcerative colitis mid . - Other Health History Other Health History: Osteoarthritis in joints. - Chronic Pain History Chronic Pain: Yes - Surgical History Prior Surgeries: 1952-ing. hernia repair. 1965-nasal surg. 1970-ing. hernia repair. 1980-repeat ing hernia repair. 1987-L5/S1 lami. 1995-cervical fusion. 1997-repeat ing hernia repair. 2009-R shoulder scope. ANE Review of Systems Review of systems is: negative Review of Systems: - Exercise capacity Exercise capacity: >=4 METS METS (RN): 4 METS ANE Patient History - Allergies Allergies/Adverse Reactions: erythromycin base Allergy (Severe, Verified 10/03/17 12:20) Other-Enter Comments - Home Medications Home medications: home medication list seen and reviewed Home Medications: RX: Amitriptyline HCl [Elavil 50 mg (*)] 25 mg PO HS 06/11/14 [Last Taken ] RX: Carisoprodol [Soma (*)] 350 mg PO HS 06/11/14 [Last Taken 10/21/17] RX: Diazepam [Valium 5 MG (*)] 10 mg PO HS PRN 06/11/14 [Last Taken 10/21/17] RX: Herbals/Supplements -Info Only 1 ea PO DAILY 06/11/14 [Last Taken 10/18/17] RX: Pravastatin Sodium [Pravachol] 40 mg PO HS 06/11/14 [Last Taken 10/21/17] RX: Sodium Cl Nasal [[place] (*)] 1 spray NS PRN PRN 06/11/14 [Last Taken ] RX: clonAZEPAM [KLONOPIN] 0.5 mg PO HS PRN 06/11/14 [Last Taken 10/21/17] RX: Polyethylene Glycol 3350 [Miralax 17 gm (*)] 17 gm PO DAILY 07/10/17 [Last Taken 10/22/17] Naproxen Sodium [Aleve 220 MG (*)] 440 mg PO DAILY 09/28/17 [Last Taken 10/18/17 ] oxyCODONE IR [Oxycodone Ir (*)] 20 mg PO Q4H 09/28/17 [Last Taken 10/23/17 03:00 ] - NPO status NPO Status: no food or drink >8 hours - Anes Hx Anes Hx: no prior problems - Smoking Hx Smoking Status: Never smoked Marijuana use: Yes - Alcohol Use Alcohol Use: Rarely - Family Anes Hx Family Anes Hx: neg - N/A Family Hx Anesthesia Complications: no ANE Labs/Vital Signs - Vital Signs Vital Signs: reviewed preoperatively; see RN documention for details Height: 180.34 cm Weight: 79.379 kg ANE Physical Exam - Airway Neck exam: FROM Mallampati Score: Class 1 Mouth exam: poor dentition Mouth image: 1 - Capped - Pulmonary Pulmonary: no respiratory distress - Cardiovascular Cardiovascular: regular rate and rhythym - ASA Status ASA Status: III ANE Anesthesia Plan Anesthesia Plan: GA w LMA (General Anesthesia w/ LMA as back-up plan.), MAC, spinal Total IV Anesthesia: No
[2017-10-23] MEDS ORDERED: ceFAZolin 1 GM/5 ML SYR ONE ×2 (07:18→07:51)
[2017-10-23] MEDS ORDERED: ACETAMINOPHEN 325 MG TAB PO ONE (07:20)
[2017-10-23] MEDS ORDERED: LR 1,000 ML IV ONE (07:20)
[2017-10-23] MEDS ORDERED: FAMOTIDINE 20 MG TAB PO ONE (07:20)
[2017-10-23] MEDS ORDERED: MIDAZOLAM 2 MG/2 ML VIAL IVP ONE (07:38)
[2017-10-23] MEDS ORDERED: fentaNYL 100 MCG/2 ML INJ ONE ×2 (07:58→11:16)
[2017-10-23] MEDS ORDERED: PROPOFOL/EMULSION 500 MG/50 ML BOTTLE IV ONE (07:58)
[2017-10-23] MEDS ORDERED: DEXAMETHASONE 4 MG/ML VIAL ONE (08:07)
[2017-10-23] MEDS ORDERED: ONDANSETRON 4 MG/2 ML VIAL ONE (08:08)
[2017-10-23] MEDS ORDERED: fentaNYL 100 MCG/2 ML INJ IVP PRN (08:46)
[2017-10-23] MEDS ORDERED: NALOXONE HCL 0.4 MG/ML INJ IVP PRN (08:46)
[2017-10-23] MEDS ORDERED: ONDANSETRON 4 MG/2 ML VIAL IVP PRN ×2 (08:46→09:42)
[2017-10-23] MEDS ORDERED: LR 500 ML IV PRN (08:46)
[2017-10-23] MEDS ORDERED: HYDROmorphONE/DILAUDID 2 MG/ML INJ IVP PRN (08:46)
[2017-10-23] MEDS ORDERED: PROPOFOL 200 MG/20 ML VIAL ONE (09:25)
[2017-10-23] MEDS ORDERED: BISACODYL 10 MG SUPP PR PRN (09:42)
[2017-10-23] MEDS ORDERED: ONDANSETRON DISINTEGRATING 4 MG TAB PO PRN (09:42)
[2017-10-23] MEDS ORDERED: CYCLOBENZAPRINE 10 MG TAB PO PRN (09:42)
[2017-10-23] MEDS ORDERED: TEMAZEPAM 15 MG CAP PO PRN (09:42)
[2017-10-23] MEDS ORDERED: METOCLOPRAMIDE 10 MG/2 ML VIAL IVP PRN (09:42)
[2017-10-23] MEDS ORDERED: PROMETHAZINE HCL 25 MG SUPPR PR PRN (09:42)
[2017-10-23] MEDS ORDERED: diphenhydrAMINE 25 MG CAP PO PRN (09:42)
[2017-10-23] MEDS ORDERED: LACTULOSE 20 GM/30 ML UDCUP PO PRN (09:42)
[2017-10-23] MEDS ORDERED: POLYETHYLENE GLYCOL 3350 17 GM PKT PO PRN (09:42)
[2017-10-23] MEDS ORDERED: DIPHENOXYLATE/ATROPINE LOMOTIL 1 TAB PO PRN (09:42)
[2017-10-23] MEDS ORDERED: PROMETHAZINE HCL 25 MG/ML INJ IVP PRN (09:42)
[2017-10-23] MEDS ORDERED: MAGNESIUM HYDROXIDE 30 ML UDCUP PO PRN (09:42)
[2017-10-23] MEDS ORDERED: SODIUM CL NASAL 45 ML BTL NS PRN (09:43)
[2017-10-23] MEDS ORDERED: DIAZEPAM 5 MG TAB PO PRN (09:43)
[2017-10-23] MEDS ORDERED: TRANEXAMIC ACID 650 MG TAB PO SCH (09:45)
--- NOTE | 2017-10-23 09:45 | POSTOPPROG ---
Post Op Note Date of Operation: 10/23/17 Surgeon: Rubén Perrin Game Trapper: charla Anesthesiologist: zenia Anesthesia: GET(General Endotracheal) Pre-op Diagnosis: left hip djd Post-op Diagnosis: same Indication: same Procedure: left jennifer Inf/Abcess present in the surg proc area at time of surgery?: No EBL: [id number]
[2017-10-23] MEDS ORDERED: LR 1,000 ML IV SCH (10:00)
[2017-10-23] MEDS ORDERED: oxyCODONE IR 5 MG TAB ONE (10:44)
[2017-10-23] MEDS: oxyCODONE IR 5 MG TAB PO SCH ×4 (10:45→22:11)
[2017-10-23] MEDS ORDERED: clonazePAM 0.5 MG TAB PO PRN (11:00)
[2017-10-23] MEDS: ACETAMINOPHEN 325 MG TAB PO SCH ×3 (12:34→23:57)
[2017-10-23] MEDS: oxyCODONE IR 5 MG TAB PO PRN ×2 (12:40→15:27)
[2017-10-23] MEDS: ceFAZolin 2 GM/DEXTROSE 100 ML IV SCH ×2 (14:10→22:27)
--- NOTE | 2017-10-23 14:31 | POSTANESTH ---
Post Anesthetic Evaluation Cardiovascular Status: Normal, Stable, Similar to Pre-Op Cond Respiratory Status: Normal, Stable, Similar to Pre-op Cond. Level of Consciousness/Mental Status: Can Participate in Eval, Alert and Oriented Pain Control: Adequate, Prn Tx Ordered Nausea/Vomiting Control: Adequate, Prn Tx Ordered Complications Possibly Related to Anesthesia: None Noted
[2017-10-23] MEDS: TRANEXAMIC ACID 650 MG TAB PO SCH ×2 (15:26→23:55)
--- NOTE | 2017-10-23 15:41 | PDMN ---
Medical Necessity Medical necessity: IP surgery per [facility] cpt [id number] L ALEXANDREA
[2017-10-23] MEDS: ASPIRIN 325 MG TAB PO SCH (20:40)
[2017-10-23] MEDS: SENNOSIDES/DOCUSATE SODIUM TAB PO SCH (20:40)
[2017-10-23] MEDS: FERROUS SULFATE 325 MG TAB PO SCH (20:40)
[2017-10-23] MEDS: FAMOTIDINE 20 MG TAB PO SCH (20:41)
[2017-10-23] MEDS: morphINE SR 60 MG TAB PO SCH (20:41)
[2017-10-23] MEDS: METOPROLOL TARTRATE 25 MG TAB PO SCH (20:41)
[2017-10-23] MEDS ORDERED: CARISOPRODOL 350 MG TAB PO SCH (21:00)
[2017-10-23] MEDS ORDERED: AMITRIPTYLINE HCL 50 MG TAB PO SCH (21:00)
[2017-10-23] MEDS ORDERED: PRAVASTATIN SODIUM 40 MG TAB PO SCH (21:00)
[2017-10-24] MEDS: oxyCODONE IR 5 MG TAB PO SCH ×3 (03:04→08:53)
[2017-10-24] MEDS: ACETAMINOPHEN 325 MG TAB PO SCH (05:39)
--- NOTE | 2017-10-24 07:14 | PDIAF ---
- Diagnosis Diagnosis: left hip djd Code Status: Full Code - Medication Management Discharge Medications: Medications to Continue on Transfer Amitriptyline HCl [Elavil 50 mg (*)] 25 mg PO HS 06/11/14 [Last Taken 10/21/17] Carisoprodol [Soma (*)] 350 mg PO HS 06/11/14 [Last Taken 10/21/17] Diazepam [Valium 5 MG (*)] 10 mg PO HS PRN 06/11/14 [Last Taken 10/21/17] Herbals/Supplements -Info Only 1 ea PO DAILY 06/11/14 [Last Taken 10/18/17] Pravastatin Sodium [Pravachol] 40 mg PO HS 06/11/14 [Last Taken 10/21/17] Sodium Cl Nasal [[place] (*)] 1 spray NS PRN PRN 06/11/14 [Last Taken ] clonAZEPAM [KLONOPIN] 0.5 mg PO HS PRN 06/11/14 [Last Taken 10/21/17] Polyethylene Glycol 3350 [Miralax 17 gm (*)] 17 gm PO DAILY 07/10/17 [Last Taken 10/22/17] Ferrous Sulfate 325 mg PO BID #60 tablet 07/12/17 [Last Taken 10/16/17] Metoprolol Tartrate [Lopressor 25 mg (*)] 12.5 mg PO BID #60 tab 07/12/17 [Last Taken 10/22/17] oxyCODONE IR [Oxycodone Ir (*)] 20 mg PO Q4H 09/28/17 [Last Taken 10/23/17 03:00 ] Morphine Sulfate [Ms Contin] 60 mg PO Q12HRS 10/23/17 [Last Taken 10/23/17 00:00 ] Aspirin [Aspirin 325 mg (*)] 325 mg PO DAILY tab 10/24/17 [Last Taken Unknown] Discharge Medications: Refer to the Discharge Home Medication list for PRN reason. - Orders Services needed: Physical Therapy Diet Recommendation: no restrictions on diet Diet Texture: Regular Texture Diet Activity/Weight Bearing Restrictions: wbat. rom as storm, anterior hip precautions. ice prn. may shower without bandage. no soaking. daily dressing change if dressing becomes saturated. seek attn for increasing pain, cp, sob, drainage, redness or other focal complaint. f/u at two weeks Additional Instructions: TOTAL JOINT ARTHROPLASTY DISCHARGE INSTRUCTIONS 1. Your surgeon follows the [facility] protocol for reducing your risk of DVT (blood clots) following surgery. Medication will be ordered to prevent blood clots. A sudden increase in calf pain and/or swelling could indicate a blood clot in your leg. If this occurs, please call your surgeon or his/her dairy and food laboratory assistant. An ultrasound of the leg may be necessary to diagnose a blood clot. If you have conditions that make you a higher risk for blood clots, your surgeon may use more aggressive ways to prevent them. Notify your surgeon if you think you are a high risk for blood clots. 2. Wear your white surgical stockings (JAIDEN hose) for 2 weeks. This decreases your swelling and may help prevent blood clots. It is ok to remove JAIDEN hose at night time to give your legs a break. 3. Swelling and bruising in the surgical leg is common. If you feel that it is excessive, please notify your surgeon. 4. Elevate your surgical leg with the ankle above the hip several times every day. Please keep the leg straight when you elevate by putting pillows under your foot. Do not put pillows under your knee. This will make being able to fully straighten more difficult. This is uncomfortable, but try to do it as much as possible. 5. For total knee replacements use compressive wrap on your knee for 3-5 days after surgery, then you can discontinue it. 6. Use a walker or crutches for 1-2 weeks. Progress your weight-bearing as tolerated. You may start to use a cane when you feel stable and safe. 7. You will receive physical therapy instructions in the hospital. Continue those exercises at home. There are additional exercises in the total joint booklet you were given before surgery. Outpatient physical therapy will begin 7- 10 days after surgery. Please schedule this in advance. 8. Use ice on your knee at least 3-5 times every day for 30 minutes. This helps reduce pain and swelling. Also use it at night before falling asleep. 9. Leave your surgical dressing in place for 2 weeks. Your dressing is water resistant, but not waterproof. Cover it with Saran Wrap or Wwgof-l-Cawf before showering. You may shower as soon as you feel safe entering a shower. If you notice bleeding from your incision 2 or 3 days after surgery, please notify your surgeon. 10. Due to narcotics, decreased activity and altered diet, most patients experience constipation after surgery. Use pque-jaw-hgwigjj stool softeners while you are on narcotics. 11. You may drive a car when you are comfortable bearing weight, have good muscular control of your leg and are off narcotics. This usually occurs 2-4 weeks after surgery, depending on which leg was operated on. 12. If there are questions not addressed here, please refer the [facility] book given for more information. If you still have questions, please contact your surgeon s office. 13. If you have a life-threatening emergency, please call 911 and go to the emergency room immediately. For non-life threatening emergencies, please call your physicians office for advice before going to the emergency room. - Follow Up Care Current Providers and Referrals: Rubén Perrin MD [Medical Doctor] - Yasir Cheung MD [Primary Care Provider] -
--- NOTE | 2017-10-24 07:16 | SOAPPROG ---
SOAP Progress Note Assessment/Plan: Assessment: s/p jennifer Plan:d/c home stable dvt precautions reviewed no acute issues 10/24/17 07:14 Subjective: pain storm no cp or sob Objective: Vital Signs Temp Pulse Resp BP Pulse Ox 36.6 C 65 17 105/62 98 10/24/17 04:00 10/24/17 04:00 10/24/17 04:00 10/24/17 04:00 10/24/17 04:00 Laboratory Results 10/24/17 04:17 10/23/17 10/24/17 10/25/17 05:59 05:59 05:59 Intake Total 1720 Output Total 1925 Balance -205 dressing intact intact pf,df,ehl neg homans prasanna xrays stable alignment, no fx or lucency ICD10 Worksheet Patient Problems: Problems Problem Status Onset Supraventricular tachycardia Acute
[2017-10-24 07:45] VITALS: BP 97/59
[2017-10-24] MEDS: METOPROLOL TARTRATE 25 MG TAB PO SCH (07:59)
[2017-10-24] MEDS: FERROUS SULFATE 325 MG TAB PO SCH (07:59)
[2017-10-24] MEDS: ASPIRIN 325 MG TAB PO SCH (08:00)
[2017-10-24] MEDS: SENNOSIDES/DOCUSATE SODIUM TAB PO SCH (08:00)
[2017-10-24] MEDS: TRANEXAMIC ACID 650 MG TAB PO SCH (08:01)
[2017-10-24] MEDS: oxyCODONE IR 5 MG TAB PO PRN (08:01)
[2017-10-24] MEDS: morphINE SR 60 MG TAB PO SCH (08:01)
[2017-10-24] MEDS: FAMOTIDINE 20 MG TAB PO SCH (08:03)
[2017-10-24] MEDS ORDERED: POLYETHYLENE GLYCOL 3350 17 GM PKT PO SCH (09:00)
[2017-10-24] MEDS ORDERED: Herbals/Supplements -Info Only PO SCH (09:00)
--- NOTE | 2017-10-24 11:38 | ASMTCMCOM ---
CM Note CM Note Notes: PT rec home/outpatient. Pt reports he regularly attends outpatient PT for prior injuries and declines HHC. Pt medically stable for d/c, no CM d/c needs identified. Date Signed: 10/24/2017 11:38 AM Electronically Signed By:SRIDHAR Heredia
== END 2017-10-24 12:18 | disposition home or self-care (01) | DRG 470 ==
LOC: F3N 06:00
PROVIDERS: ADMIT Orthopaedic Surgery; ATTEND Orthopaedic Surgery
PROC: 8E0Y0CZ Robotic Assisted Procedure of Lower Extremity, Open Approach (ICD-10-PCS; principal; 2017-10-23 08:15)
PROC: 0SRB04Z Replacement of Left Hip Joint with Ceramic on Polyethylene Synthetic Substitute, Open Approach (ICD-10-PCS; principal; 2017-10-23 08:15)
DX: M16.12 Unilateral primary osteoarthritis, left hip (principal); I48.91 Unspecified atrial fibrillation; G89.29 Other chronic pain; G47.37 Central sleep apnea in conditions classified elsewhere; Z79.01 Long term (current) use of anticoagulants
CPT/HCPCS: 97116-GP; 97161-GP; 97165-GO; G8978-GP-CK; G8979-GP-CI; G8980-GP-CI; G8987-GO-CI; G8988-GO-CI; G8989-GO-CI; J0171; J0690; J1100; J1885; J2250; J2270; J2405; J2704; J2795; J3010

== ENCOUNTER → 2018-01-18 | Outpatient (CLI) | payer OTHER, BC | LOC: BMCIMAGING 10:26 | PROVIDERS: ATTEND Orthopaedic Surgery | DX: Z47.1 Aftercare following joint replacement surgery (principal); Z96.642 Presence of left artificial hip joint ==

== ENCOUNTER → 2018-03-28 | Outpatient (CLI) | payer OTHER, BC | LOC: FIMAGING 12:53 | PROVIDERS: ATTEND Specialist | DX: N20.0 Calculus of kidney (principal) ==

== ENCOUNTER → 2018-04-17 | Outpatient (CLI) | payer OTHER, BC | LOC: FIMAGING 08:51 | PROVIDERS: ATTEND Specialist | DX: R93.421 Abnormal radiologic findings on diagnostic imaging of right kidney (principal); R93.422 Abnormal radiologic findings on diagnostic imaging of left kidney; I87.8 Other specified disorders of veins; Z87.442 Personal history of urinary calculi; Z96.642 Presence of left artificial hip joint ==

== ENCOUNTER → 2018-05-01 | Outpatient (CLI) | payer OTHER, BC | LOC: FIMAGING 15:26 | PROVIDERS: ATTEND Specialist | DX: N13.1 Hydronephrosis with ureteral stricture, not elsewhere classified (principal); N20.0 Calculus of kidney; N28.9 Disorder of kidney and ureter, unspecified ==

== ENCOUNTER 2018-05-17 12:01 | Day surgery (SDC) | payer OTHER, BC ==
[2018-05-17] MEDS ORDERED: levOFLOXACIN 500 MG/DEXTROSE 100 ML IV ONE (12:08)
[2018-05-17] MEDS ORDERED: LR 1,000 ML IV ONE (12:08)
[2018-05-17] MEDS ORDERED: MIDAZOLAM 2 MG/2 ML VIAL IVP ONE (13:02)
--- NOTE | 2018-05-17 13:02 | PDANEPAE ---
ANE History of Present Illness 67 yo for ureteroscopy ANE Past Medical History - Cardiovascular History Hx Hypertension: No Hx Arrhythmias: Yes Hx Chest Pain: No Hx Coronary Artery / Peripheral Vascular Disease: No Hx CHF / Valvular Disease: No Hx Palpitations: No Cardiovascular History Comment: Bundle branch block-benign per pt. History of A. Fib/Flutter - Pulmonary History Hx COPD: No Hx Asthma/Reactive Airway Disease: No Hx Recent Upper Respiratory Infection: Yes Hx Oxygen in Use at Home: No Hx Sleep Apnea: Yes Sleep Apnea Screening Result - Last Documented: Positive Pulmonary History Comment: 06/04-pnuemonia. 03/04-DX central sleep apnea. On ASV machine. - Neurologic History Hx Cerebrovascular Accident: No Hx Seizures: No Hx Dementia: No - Endocrine History Hx Diabetes: No - Renal History Hx Renal Disorders: No Renal History Comment: kidney stone - Liver History Hx Hepatic Disorders: No - Neurological & Psychiatric Hx Hx Neurological and Psychiatric Disorders: Yes Neurological / Psychiatric History Comment: Anxiety - Cancer History Hx Cancer: No - Congenital Disorder History Hx Congenital Disorders: Yes Congenital History Comment: Inguinal hernia-repaired at . [facility] X4 - GI History Hx Gastrointestinal Disorders: Yes Gastrointestinal History Comment: Ulcerative colitis mid . - Other Health History Other Health History: Osteoarthritis in joints. CHRONIC PAIN PT - Chronic Pain History Chronic Pain: Yes (CHRONIC PAIN HIP & JOINTS) - Surgical History Prior Surgeries: 10/2017 L ALEXANDREA. 1952-ing. hernia repair. 1965-nasal surg. 1970- ing. hernia repair. 1980-repeat ing hernia repair. 1987-L5/S1 lami. 1995- cervical fusion. 1997-repeat ing hernia repair. 2009-R shoulder scope. ANE Review of Systems Review of Systems: - Exercise capacity METS (RN): 4 METS ANE Patient History - Allergies Allergies/Adverse Reactions: erythromycin base Allergy (Severe, Verified 10/03/17 12:20) Other-Enter Comments - Home Medications Home medications: home medication list seen and reviewed Home Medications: Amitriptyline HCl [Elavil 50 mg (*)] 25 mg PO HS 06/11/14 [Last Taken 05/17/18 00:01] Carisoprodol [Soma (*)] 350 mg PO HS 06/11/14 [Last Taken 05/17/18 00:01] Diazepam [Valium 5 MG (*)] 10 mg PO HS PRN 01/21/15 [Last Taken 05/17/18 00:01] Herbals/Supplements -Info Only 1 ea PO DAILY 06/11/14 [Last Taken 05/16/18] Pravastatin Sodium [Pravachol] 40 mg PO HS 06/11/14 [Last Taken 05/17/18 00:01] Sodium Cl Nasal [[place] (*)] 1 spray NS PRN PRN 06/11/14 [Last Taken 10:00] clonAZEPAM [KLONOPIN] 0.5 mg PO HS PRN 06/11/14 [Last Taken 05/17/18 00:01] Polyethylene Glycol 3350 [Miralax 17 gm (*)] 17 gm PO DAILY 07/10/17 [Last Taken 05/17/18 08:00] oxyCODONE IR [Oxycodone Ir (*)] 20 mg PO Q4H 09/28/17 [Last Taken 05/17/18 09:00 ] Morphine Sulfate [Ms Contin] 60 mg PO Q12HRS 10/23/17 [Last Taken 05/17/18 08:30 ] Aleve 05/16/18 [Last Taken 05/16/18] Omeprazole 05/16/18 [Last Taken 05/17/18 08:00] - NPO status NPO Status: no food or drink >8 hours NPO Since - Liquids (Date): 05/17/18 NPO Since - Liquids (Time): 09:30 NPO Since - Solids (Date): 05/17/18 NPO Since - Solids (Time): 00:01 - Smoking Hx Smoking Status: Never smoked - Family Anes Hx Family Hx Anesthesia Complications: no ANE Labs/Vital Signs - Labs Result Diagrams: 05/17/18 12:58 - Vital Signs Blood Pressure: 140/83 Heart Rate: 58 Respiratory Rate: 16 O2 Sat (%): 97 Height: 5 ft 11 in Weight: 79.379 kg ANE Physical Exam - Airway Neck exam: FROM Mallampati Score: Class 2 Mouth exam: normal dental/mouth exam - Pulmonary Pulmonary: no respiratory distress - Cardiovascular Cardiovascular: regular rate and rhythym - ASA Status ASA Status: III ANE Anesthesia Plan Anesthesia Plan: GA w LMA
[2018-05-17 13:04] LABS: PLATELET COUNT 190 10^3/uL (150-400)
[2018-05-17] MEDS ORDERED: LIDOCAINE 2% JELLY 20 ML (UROJECT) ONE (13:04)
[2018-05-17] MEDS ORDERED: IOPAMIDOL (ISOVUE-M 300) 15 ML VIAL ONE (13:05)
[2018-05-17] MEDS ORDERED: fentaNYL 100 MCG/2 ML INJ ONE (13:16)
[2018-05-17] MEDS ORDERED: PROPOFOL/EMULSION 500 MG/50 ML BOTTLE IV ONE (13:17)
[2018-05-17] MEDS ORDERED: ONDANSETRON 4 MG/2 ML VIAL ONE (13:59)
[2018-05-17] MEDS ORDERED: DEXAMETHASONE 4 MG/ML VIAL ONE (13:59)
--- NOTE | 2018-05-17 14:43 | POSTOPPROG ---
Post Op Note Date of Operation: 05/17/18 Surgeon: Elton Jose ( # [id number]) Anesthesia: GET(General Endotracheal) Pre-op Diagnosis: Right ureteral calculus Post-op Diagnosis: Distal right ureteral calculus Procedure: Right ureteroscopy w/ holmium laser litho., stent placement Findings: See op note Inf/Abcess present in the surg proc area at time of surgery?: No EBL: Minimal Complications: None Drains: Other (4.7 Fr. multilength right ureteral stent) Specimen(s): Right ureteral calculus fragment
[2018-05-17] MEDS ORDERED: fentaNYL 100 MCG/2 ML INJ IVP PRN (14:46)
[2018-05-17] MEDS ORDERED: NALOXONE HCL 0.4 MG/ML INJ IVP PRN (14:46)
[2018-05-17] MEDS ORDERED: ONDANSETRON 4 MG/2 ML VIAL IVP PRN (14:46)
[2018-05-17] MEDS ORDERED: oxyCODONE IR 5 MG TAB PO PRN (14:46)
[2018-05-17] MEDS ORDERED: KETOROLAC 30 MG/1 ML SDV ONE (14:46)
[2018-05-17] MEDS ORDERED: KETOROLAC 30 MG/1 ML SDV IVP ONE (14:46)
--- NOTE | 2018-05-17 15:02 | POSTANESTH ---
Post Anesthetic Evaluation Cardiovascular Status: Normal, Stable Respiratory Status: Normal, Stable Level of Consciousness/Mental Status: Can Participate in Eval Pain Control: Adequate, Prn Tx Ordered Nausea/Vomiting Control: Adequate, Prn Tx Ordered Complications Possibly Related to Anesthesia: None Noted
--- NOTE | 2018-05-17 15:17 | GOP ---
DATE OF OPERATION: 05/17/2018 SURGEON: Elton Jose MD ANESTHESIA: General endotracheal. PREOPERATIVE DIAGNOSIS: Large right proximal ureteral calculus. POSTOPERATIVE DIAGNOSIS: Large right distal ureteral calculus. PROCEDURE PERFORMED: 1. Cystourethroscopy, right retrograde pyelography. 2. Right ureteroscopy with holmium laser calculus lithotripsy and basket extraction. 3. Right ureteral stent placement (4.7-Nigerian multi length). FINDINGS: Large obstructing distal right ureteral calculus. SPECIMENS: Right ureteral calculus fragments. ESTIMATED BLOOD LOSS: Minimal. INDICATIONS: This gentleman was recently found to have a large proximal right ureteral calculus on CT imaging. He has been minimally symptomatic; however, the stone has not passed spontaneously. Therefore, it was recommended that he undergo intraoperative management. The indications for the procedures, as well as potential risks and complications were discussed with the patient preoperatively. He appeared to understand, his questions were answered, and he wished to proceed. Written informed surgical consent was thereafter obtained. DESCRIPTION OF PROCEDURE: The patient was brought to the operating room and administered general endotracheal anesthesia. He was carefully placed in the dorsal lithotomy position on the cystoscopic table. The genital area was sterilely prepped with Betadine scrub and paint, then draped in usual sterile fashion. Cystoscopy was performed with 30-degree and 70-degree lenses through a 22- [place] sheath. Urethra was unremarkable. Prostate was not significantly obstructing. Bladder was mildly trabeculated, but otherwise unremarkable. Ureteral orifices were normal in regard to shape and position along the trigone. We used a 5-Nigerian open-ended ureteral catheter to perform retrograde pyelography on the right side. This revealed a possible filling defect in the distal right ureter with [id number] hydronephrosis and hydroureter. The ureter was fairly tortuous in general. No other abnormalities were definitively seen. I then attempted to advance a 0.035 inch hydrophilic guidewire through the ureteral catheter and into the ureter; however, I could only advance the guidewire approximately 1 cm into the ureter where there appeared to be an obstruction at this location. This was possibly the location of the stone; however, it was not clearly seen at this location on retrograde pyelography. I then abandoned attempts to initially place the guidewire and removed the ureteral catheter as well. A 4 cm balloon was advanced through the cystoscope and into the distal portion of the ureter. It was inflated to 16 atmospheres of pressure and maintained at this pressure for about 3 minutes. The balloon dilator and cystoscope were then removed. Semi-rigid ureteroscopy was performed. I carefully advanced the ureteroscope into the distal ureter at which point I encountered a very large ureteral calculus. A 365 micron holmium laser fiber was used to fragment this calculus. Once I was able to identify the lumen of the ureter proximal to the calculus, I then advanced the 0.035 inch hydrophilic guidewire through the ureteroscope and into the renal collecting system as noted fluoroscopically. The ureteroscope was then withdrawn and reinserted alongside the guidewire. I then continued fragmentation of the calculus with holmium laser. Any remaining sizable stone fragments were removed with a Zero tip Nitinol stone basket without complication. These were sent to Pathology for chemical analysis. The ureteroscope was then inserted 1 last time and there were no significant sized stone fragments remaining. There was some edema and slight mucosal disruption of the distal intramural portion of the ureter at the location where the stone was impacted and where I had attempted initial insertion of the guidewire. I was confident this would heal unremarkably with an indwelling ureteral stent. The ureteroscope was then removed and the cystoscope was back- loaded over the guidewire. A 4.7-[place]ian multi length hydrophilic ureteral stent was advanced over the guidewire until it was properly positioned as seen fluoroscopically in the kidney and cystoscopically in the bladder. The bladder was then drained of all return, which was relatively clear. The instruments were removed and 20 cc of 2% lidocaine injected transurethrally for postoperative analgesic purposes. The patient was then awakened, extubated, transferred to his bed, then taken to the recovery room. He tolerated the procedure well overall. COMPLICATIONS: None. DISPOSITION: He was transferred to the recovery room in stable condition and will be discharged with instructions to return to the office in 3 to 4 weeks for ureteral stent removal. He will then need renal imaging performed about 1 month post-stent removal to rule out presence of hydronephrosis. /[id number]/MODL MTDD
[2018-05-17] MEDS ORDERED: PHENAZOPYRIDINE HCL 200 MG TAB PO ONE (15:30)
[2018-05-17] MEDS ORDERED: PHENAZOPYRIDINE HCL 200 MG TAB ONE (15:35)
[2018-05-17 15:38] VITALS: BP 132/75
== END 2018-05-17 16:40 | disposition home or self-care (01) ==
LOC: FSGY 12:01
PROVIDERS: ATTEND Specialist
PROC: 0TF68ZZ Fragmentation in Right Ureter, Via Natural or Artificial Opening Endoscopic (ICD-10-PCS; principal; 2018-05-17 15:30)
PROC: 0T768DZ Dilation of Right Ureter with Intraluminal Device, Via Natural or Artificial Opening Endoscopic (ICD-10-PCS; principal; 2018-05-17 15:30)
PROC: 0TC68ZZ Extirpation of Matter from Right Ureter, Via Natural or Artificial Opening Endoscopic (ICD-10-PCS; principal; 2018-05-17 15:30)
PROC: BT16YZZ Fluoroscopy of Right Ureter using Other Contrast (ICD-10-PCS; principal; 2018-05-17 15:30)
DX: N13.2 Hydronephrosis with renal and ureteral calculous obstruction (principal); G89.29 Other chronic pain; D64.9 Anemia, unspecified; I10 Essential (primary) hypertension; E78.5 Hyperlipidemia, unspecified; G47.31 Primary central sleep apnea; Z87.442 Personal history of urinary calculi; Z96.642 Presence of left artificial hip joint
CPT/HCPCS: 52356; 76001; C1726; C1758; C1769; 82365-90; C2625; J1100; J1885; J1956; J2250; J2405; J2704; J3010; Q9967

== ENCOUNTER → 2018-05-23 | Outpatient (CLI) | payer OTHER, BC | LOC: BMCIMAGING 10:41 | PROVIDERS: ATTEND Orthopaedic Surgery | DX: Z47.1 Aftercare following joint replacement surgery (principal); Z96.642 Presence of left artificial hip joint ==

== ENCOUNTER → 2018-09-10 | Outpatient (CLI) | payer OTHER, BC | LOC: FIMAGING 09:52 | PROVIDERS: ATTEND Orthopaedic Surgery | DX: Z03.89 Encounter for observation for other suspected diseases and conditions ruled out (principal); Z96.642 Presence of left artificial hip joint | CPT/HCPCS: 78315; A9503 ==